=== PATIENT | male | born 2000 | race Caucasian/White ===

== ENCOUNTER 2023-06-14 18:58 | Emergency (ER) | payer OTHER ==
[~2023-06-14] VITALS: Ht 165.1 cm; Wt 58.1 kg
[2023-06-14 19:40] VITALS: BP 129/82; PULSE 69; RESP 20; TEMP 98.5; O2SAT 98
[2023-06-14 20:54] VITALS: BP 129/82; PULSE 69; RESP 20; TEMP 98.5; O2SAT 98
== END 2023-06-14 20:54 | disposition home or self-care (01) ==
LOC: MED 18:58
DX: J06.9 Acute upper respiratory infection, unspecified (principal)
CPT/HCPCS: 99281